=== PATIENT | male | born 1980 | race Two or more races ===

== ENCOUNTER 2022-01-28 00:58 | Emergency (ER) | payer OTHER ==
[~2022-01-28] VITALS: Ht 165.1 cm; Wt 62.1 kg
[2022-01-28] MEDS ORDERED: ZYRTEC10 M3 (01:33)
[2022-01-28] MEDS ORDERED: FLONASE16 GM (01:33)
[2022-01-28] MEDS ORDERED: NORFLEX100MG PO (07:17)
== END 2022-01-28 07:49 ==
LOC: ER 00:58
DX: R07.89 Other chest pain (principal)

== ENCOUNTER 2024-08-22 23:03 | Emergency (ER) | payer OTHER ==
[~2024-08-22] VITALS: Ht 165.1 cm; Wt 61.7 kg
[~2024-08-22 23:03] MED LIST: FLONASE16 GM; NORFLEX100MG PO; ZYRTEC10 M3
[2024-08-22] MEDS ORDERED: CRESTOR40 MG PO (23:18)
[2024-08-23] MEDS ORDERED: HALOPERIDOL LACTATE 5 MG/ML AMPUL IM STA (03:01)
[2024-08-23] MEDS ORDERED: DIPHENHYDRAMINE HCL 50 MG/ML VIAL 1ML IM STA (03:02)
[2024-08-23] MEDS ORDERED: DEXAMETHASONE SODIUM PHOSPHATE 4 MG/ML VIAL IV STA (03:02)
[2024-08-23] MEDS ORDERED: HALOPERIDOL LACTATE 5 MG/ML AMPUL ONE (03:21)
[2024-08-23] MEDS ORDERED: DIPHENHYDRAMINE HCL 50 MG/ML VIAL 1ML ONE (03:21)
[2024-08-23] MEDS ORDERED: DEXAMETHASONE SODIUM PHOSPHATE 4 MG/ML VIAL ONE (03:22)
== END 2024-08-23 06:43 | disposition home or self-care (01) ==
LOC: ER 23:38
DX: R51.9 Headache, unspecified (principal); Z88.6 Allergy status to analgesic agent; Z91.013 Allergy to seafood